=== PATIENT | female | born 1990 | race Asian ===

== ENCOUNTER 2020-05-13 03:14 | Inpatient (IN) | payer BC, OTHER ==
[~2020-05-13] VITALS: Ht 162.6 cm; Wt 70.5 kg
[2020-05-13] MEDS ORDERED: PREN1TAB79 PEG (03:37)
[2020-05-13 03:39] VITALS: BP 108/70
[2020-05-13] MEDS ORDERED: NEWBORN KIT ONE (04:02)
[2020-05-13] MEDS: LACTATED RINGERS 1,000 ML IV SCH ×3 (04:05→20:30)
[2020-05-13] MEDS ORDERED: METOCLOPRAMIDE 5 MG/ML, 2ML IVPush PRN (04:30)
[2020-05-13] MEDS ORDERED: OXYTOCIN 30U/ 0.9% NaCL 500ML 500 ML IV ONE (04:30)
[2020-05-13] MEDS ORDERED: FENTANYL PF 100 MCG/2ML IVPush PRN (04:30)
[2020-05-13] MEDS ORDERED: CALCIUM CARBONATE 500 MG TAB.CHEW PO PRN (04:30)
[2020-05-13] MEDS ORDERED: D5%-LACTATED RINGERS 1,000 ML IV SCH (04:30)
[2020-05-13] MEDS ORDERED: SODIUM CITRATE/CITRIC ACID 30 ML UDC PO PRN (04:30)
[2020-05-13] MEDS ORDERED: OXYTOCIN 30U/ 0.9% NaCL 500ML 500 ML IV PRN (04:30)
[2020-05-13] MEDS ORDERED: TERBUTALINE 1 MG/ML, 1ML IVPush PRN (04:30)
[2020-05-13] MEDS ORDERED: ONDANSETRON 2MG/ML, 2ML IVPush PRN (04:30)
[2020-05-13] MEDS ORDERED: TERBUTALINE 1 MG/ML, 1ML SQ PRN (04:30)
[2020-05-13] MEDS ORDERED: FENTANYL PF 100 MCG/2ML IV PRN (04:30)
[2020-05-13 04:42] LABS: BASOPHILS % (AUTO) 1 % (0-1); EOSINOPHILS % (AUTO) 2 % (1-7); LYMPHOCYTES % (AUTO) 28 % (22-44); MEAN CORPUSCULAR HEMOGLOBIN 30.1 pg (27.0-34.8); MEAN CORPUSCULAR HGB CONC 33.3 g/dL (32.4-35.8); MEAN PLATELET VOLUME 9.2 fL (7.4-10.4); MONOCYTES % (AUTO) 7 % (2-9); NEUTROPHILS % (AUTO) 62 % (42-75); PLATELET COUNT 186 x10^3/uL (130-400); RED BLOOD COUNT 4.59 x10^6/uL (3.82-5.3); RED CELL DISTRIBUTION WIDTH 13.9 % (9.6-15.2)
[2020-05-13 04:43] LABS: MD NO
[2020-05-13] MEDS ORDERED: LIDOCAINE 1%, 20ML ONE (04:50)
[2020-05-13] MEDS ORDERED: MISOPROSTOL 200 MCG TABLET ONE (04:50)
[2020-05-13] MEDS ORDERED: OXYTOCIN 30U/ 0.9% NaCL 500ML 500 ML ONE ×2 (04:51→13:19)
[2020-05-13] MEDS ORDERED: TERBUTALINE 1 MG/ML, 1ML ONE (04:51)
[2020-05-13] MEDS ORDERED: FENTANYL/BUPIV./NS/PF 250 ML EPIDCONT ONE (07:05)
[2020-05-13] MEDS ORDERED: ONDANSETRON 2MG/ML, 2ML ONE (07:49)
[2020-05-13] MEDS ORDERED: IBUPROFEN 600 MG TABLET ONE (12:54)
[2020-05-13] MEDS ORDERED: SIMETHICONE 80 MG CHEW TAB PO PRN (13:00)
[2020-05-13] MEDS ORDERED: ONDANSETRON 2MG/ML, 2ML IV PRN (13:00)
[2020-05-13] MEDS ORDERED: METHYLERGONOVINE 0.2 MG/ML IM PRN (13:00)
[2020-05-13] MEDS ORDERED: OXYcodone/APAP 5/325MG TABLET PO PRN ×2 (13:00)
[2020-05-13] MEDS ORDERED: METOCLOPRAMIDE 5 MG/ML, 2ML IV PRN (13:00)
[2020-05-13] MEDS ORDERED: MISOPROSTOL 200 MCG TABLET PR PRN (13:00)
[2020-05-13] MEDS ORDERED: ACETAMINOPHEN 325 MG TABLET PO PRN (13:00)
[2020-05-13] MEDS ORDERED: CARBOPROST TROMETHAMINE 250 MCG/ML, 1ML IM PRN (13:00)
[2020-05-13] MEDS: IBUPROFEN 600 MG TABLET PO PRN ×2 (13:03→20:26)
[2020-05-13] MEDS: OXYTOCIN 30U/ 0.9% NaCL 500ML 500 ML IV SCH ×2 (13:20→23:00)
[2020-05-13 14:40] VITALS: BP 97/57
[2020-05-13 20:05] VITALS: BP 99/65
[2020-05-13] MEDS: DOCUSATE 100 MG CAPSULE PO PRN (20:27)
[2020-05-13 20:44] LABS: BASOPHILS % (AUTO) 1 % (0-1); EOSINOPHILS % (AUTO) 1 % (1-7); LYMPHOCYTES % (AUTO) 14 % (22-44); MEAN CORPUSCULAR HEMOGLOBIN 30.2 pg (27.0-34.8); MEAN CORPUSCULAR HGB CONC 33.4 g/dL (32.4-35.8); MEAN PLATELET VOLUME 9.5 fL (7.4-10.4); MONOCYTES % (AUTO) 7 % (2-9); NEUTROPHILS % (AUTO) 77 % (42-75); PLATELET COUNT 188 x10^3/uL (130-400); RED BLOOD COUNT 3.98 x10^6/uL (3.82-5.3); RED CELL DISTRIBUTION WIDTH 13.6 % (9.6-15.2)
[2020-05-13 20:52] LABS: MD NO
[2020-05-13] MEDS ORDERED: ZOLPIDEM 5MG TABLET PO PRN (22:00)
[2020-05-14 00:25] VITALS: BP 109/69
[2020-05-14 04:30] VITALS: BP 104/64
[2020-05-14 07:30] VITALS: BP 115/70
[2020-05-14] MEDS ORDERED: PRENATAL VIT/IRON/FA 1 EACH TABLET PO SCH (09:00)
[2020-05-14] MEDS: DOCUSATE 100 MG CAPSULE PO PRN (10:36)
[2020-05-14 12:00] VITALS: BP 113/74
[2020-05-14] MEDS: IBUPROFEN 600 MG TABLET PO PRN (13:12)
== END 2020-05-14 15:04 | disposition home or self-care (01) | DRG 807 ==
LOC: LDOP 03:14 → LDIP 04:14 → 2NW 14:37
PROVIDERS: ADMIT Obstetrics & Gynecology; ATTEND Obstetrics & Gynecology
PROC: 10E0XZZ Delivery of Products of Conception, External Approach (ICD-10-PCS; principal; 2020-05-13)
PROC: 0HQ9XZZ Repair Perineum Skin, External Approach (ICD-10-PCS; 2020-05-13)
PROC: 3E0R3BZ Introduction of Anesthetic Agent into Spinal Canal, Percutaneous Approach (ICD-10-PCS; 2020-05-13)
PROC: 00HU33Z Insertion of Infusion Device into Spinal Canal, Percutaneous Approach (ICD-10-PCS; 2020-05-13)
DX: O70.0 First degree perineal laceration during delivery (principal); Z37.0 Single live birth; Z3A.39 39 weeks gestation of pregnancy; Z20.828 Contact with and (suspected) exposure to other viral communicable diseases
CPT/HCPCS: 36415; J3490; 84112; 85025; 86592; 86850; 86900; 87635; G0378; J2405; J2590; J3010; J7120